=== PATIENT | male | born 1990 | race Caucasian/White ===

== ENCOUNTER 2020-02-17 15:22 | Outpatient (CLI) | payer BC ==
--- NOTE | 2020-02-17 15:46 | RAD ---
Chest 2 views HISTORY: Chest pain. FINDINGS: Cardiac silhouette and pulmonary vasculature are unremarkable. Mediastinum is midline. No confluent airspace consolidation, pneumothorax, or pleural fluid. IMPRESSION : No active cardiopulmonary abnormalities are demonstrated.
--- NOTE | 2020-02-17 15:49 | RAD ---
Radiograph right ribs 3 views: HISTORY: 29-year-old male with persistent posttraumatic right rib pain after injury 3 weeks ago FINDINGS: No right rib fracture is identified. IMPRESSION: Negative
== END 2020-02-17 15:23 | disposition home or self-care (01) ==
LOC: MADRAD 15:22
PROVIDERS: ATTEND Family Medicine
DX: R07.9 Chest pain, unspecified (principal)
CPT/HCPCS: 71046